=== PATIENT | male | born 1990 | race Caucasian/White ===

== ENCOUNTER → 2023-04-02 | Outpatient (CLI) | payer SELFPAY ==
--- NOTE | 2023-04-01 | TEST_PTH ---
PATHOLOGY RESULTS PATIENT: HAYLEY WINN LOC: [facility] U#:[id number] AGE/SX: 32/M ROOM: RE04/02/[address]: Dr. Gaston Sparrow MD : 1990 BED: DIS: 04/02/2023 SPEC #: [id number] RECD: 04/05/23 08:04 STATUS: EUGENE GELACIO #: [id number] MONO: 04/01/23 00:[address]: Gaston Sparrow DEPT: SURGICAL PATHOLOGY RECD BY: Wesley Queen ENTERED: 04/05/23 08:04 SP TYPE: TESTICLE OTHR DR: DIMITRI Tissues: Testis, NOS Procedures: Surgery Specimen Level IV HEADER OPERATION: Right simple orchiectomy PRE-OP DIAGNOSIS: Undescended testicle TISSUE SUBMITTED: Right testicle MICROSCOPIC DIAGNOSIS Right testicle, simple orchiectomy: Testis with aspermatogenesis. Epididymis, no pathologic diagnosis. SJ:natty 04/06/2023 COMMENT Case has been reviewed in consultation with Dr. Hernandes who concurs with the above diagnosis. IDC:AM MICROSCOPIC DESCRIPTION Slides are reviewed. GROSS DESCRIPTION Received in fixative is one container labeled with the patient's name and designated right testicle. The specimen consists of a simple orchiectomy specimen consisting of testicle, epididymis and spermatic cord weighing 7.6 gm. The testis measures 2.5 x 1.5 x 1.5 cm. The spermatic cord measures 2.5 x 1.0 x 0.7 cm. The epididymis measures 2.5 x 1.0 x 1.0 cm. Sections of testis reveal yellow-orange parenchyma without any mass lesion. [employer] sections are submitted in four cassettes as follows: 1??resections margins of spermatic cord, 2 - more sections of spermatic cord and epididymis, 3 & 4 - testis. / SERGEY:natty 04/05/2023 TC:5 [facility]: [id number]
== END | disposition home or self-care (01) ==
LOC: LABSPEC 15:58
PROVIDERS: Referring Provider Urology; Visit Provider Urology
DX: Q53.10 Unspecified undescended testicle, unilateral (principal)
CPT/HCPCS: 88305; 88309